=== PATIENT | male | born 1975 | race Two or more races ===

== ENCOUNTER 2019-04-12 22:32 | Emergency (ER) | payer SELFPAY ==
[~2019-04-12] VITALS: Ht 170.2 cm; Wt 81.6 kg
[2019-04-13] MEDS ORDERED: ACETAMINOPHEN/CODEINE#3 (300/30mg) TAB PO ONE (02:15)
[2019-04-13] MEDS ORDERED: IBUPROFEN 800 MG TAB PO ONE (02:15)
[2019-04-13 02:50] VITALS: BP 156/101
== END 2019-04-13 02:58 | disposition home or self-care (01) ==
LOC: ER 22:32
DX: S63.502A Unspecified sprain of left wrist, initial encounter (principal); X58.XXXA Exposure to other specified factors, initial encounter; Y93.89 Activity, other specified; Y99.8 Other external cause status; Y92.89 Other specified places as the place of occurrence of the external cause
CPT/HCPCS: 29125; 73090; 73110